=== PATIENT | male | born 1960 | race African-American/Black ===

== ENCOUNTER 2016-08-06 13:10 | Emergency (ER) | payer OTHER ==
[2016-08-06 14:34] LABS: BILIRUBIN NEGATIVE (NEGATIVE); BLOOD TRACE-INTACT Ery/uL (NEGATIVE); CLARITY CLEAR (CLEAR); COLOR YELLOW (YELLOW); GLUCOSE (U) TRACE mg/dL (NORMAL); KETONE (U) NEGATIVE (NEGATIVE); LEUKOCYTES NEGATIVE Leu/uL (NEGATIVE); NITRITE NEGATIVE (NEGATIVE); PROTEIN TRACE (LOW) mg/dL (NEGATIVE)
[2016-08-06 15:02] LABS: URINARY WBC RARE
[2016-08-06 15:03] LABS: MUCOUS TRACE
== END 2016-08-06 15:38 | disposition home or self-care (01) ==
LOC: FER 13:10
PROVIDERS: Emergency Medicine
DX: R07.81 Pleurodynia (principal); K21.9 Gastro-esophageal reflux disease without esophagitis; Z88.6 Allergy status to analgesic agent; Z79.899 Other long term (current) drug therapy
CPT/HCPCS: 71020; 71100; 81001; 99283